=== PATIENT | male | born 1945 | race Caucasian/White ===

== ENCOUNTER → 2017-08-02 | Outpatient (CLI) | payer OTHER ==
[~2017-08-02] MED LIST: ACETAMINOPHEN-120 ML PO; ALBUTEROL NEB IH; AMLODIPINE BESY10 MG PO; ASPIRIN EC81 M1 PO; ASPIRIN81 MG OR; AVELOX 400 MG400 M1 PO; AVELOX 400 MG400 MG OR; AVELOX400 MG PO; CARVEDILOL25 MG PO; CHLOR-TABLET4 MG PO; COMBIVENT IN; COREG OR; COZAAR 50 MG TA50 MG PO; CRESTOR10 MG OR; DOXYCYCLINE 10100 MG PO; DOXYCYCLINE HYC50 MG PO; DUONEB 2.5-0.5 M3 ML INH; FLONASE 0.05%50 MCG NASAL; HUMALOG KW200 UNIT/1 SUBQ; HUMALOG100 UNIT/1; HYDROCHLOROTHIA25 M1 PO; HYDROCHLOROTHIA25 M2 PO; HYDROCODON-ACE1 EAC7 PO; K-DUR 20 MEQ T20 MEQ OR; K-DUR 20 MEQ T20 MEQ PO; LANTUS SC; LANTUS SOL100 UNIT/1 SUBQ; LISINOPRIL20 MG PO; LORATIDINE 10 M10 M1 PO; MAG DELAY64 MG OR; MAXZIDE-25 MG1 EACH PO; METFORMIN HCL500 MG PO; MUCINEX TA600 MG/TA1 PO; MUCINEX600 MG PO; NITROLINGUAL PU12 G1 SPRAY; NORVASC10 MG PO; NOVOLOG100 UNIT/1; NOVOLOG100 UNIT/1 SC; PREDNISOLONE 5 M5 M1 PO; PREDNISONE 10 M10 MG PO; PREDNISONE50 MG PO; PROTONIX40 M2 PO; PROVENTIL17 G1 IH; SYMBICORT160 MCG/4. INH; TESSALON PERLE100 MG PO; ZETIA10 MG OR; ZETIA10 MG PO; ZPAK PO; multivitamins
== END | disposition home or self-care (01) ==
LOC: RAD 09:30 → CAT 09:39
DX: M75.101 Unspecified rotator cuff tear or rupture of right shoulder, not specified as traumatic (principal)
CPT/HCPCS: 57086

== ENCOUNTER 2017-08-05 03:26 | Emergency (ER) | payer OTHER ==
[~2017-08-05] VITALS: Ht 190.5 cm; Wt 167.8 kg
--- NOTE | ~2017-08-05 | EKG ---
[address] [place] [address] ELECTROCARDIOGRAM REPORT Name: WAQAS MIGUELBIBIANA [facility] [id number] Admission: 08/05/17 Attend Phys: Discharge: 08/05/17 Date of : 47 Report #: [id number] THIS REPORT FOR: //name// [facility] ED Test Date: 2017-08-05 Test Time: 04:10:32 Pat Name: CASSIE MIGUEL Department: Room: Gender: Domestic Cleaner: CADEN : 1945 Requested By: Saskia Christine Order Number: [id number] MD: Floyd Lezama Measurements Intervals [place] Rate: 68 P: -4 DC: 191 QRS: -41 QRSD: 164 T: 57 QT: 445 QTc: 474 Interpretive Statements Sinus rhythm RBBB and LAFB Compared to ECG 09/17/2011 09:50:12 Bifascicular block no longer present Electronically Signed On 08-05-2017 17:26:37 DUCT MAKER by Floyd Lezama [email or web address] <ELECTRONICALLY SIGNED> By: Floyd Lezama MD 08/05/17 1726 0410 0410 Floyd Lezama MD /ANASTASIA
[~2017-08-05 03:26] MED LIST changes: -AVELOX 400 MG400 M1 PO; -DOXYCYCLINE HYC50 MG PO; -DUONEB 2.5-0.5 M3 ML INH; -HUMALOG KW200 UNIT/1 SUBQ; -LANTUS SOL100 UNIT/1 SUBQ; -LORATIDINE 10 M10 M1 PO; -NORVASC10 MG PO; -PREDNISONE 10 M10 MG PO
[2017-08-05] MEDS ORDERED: LANTUS SOL100 UNIT/1 SUBQ (04:09)
[2017-08-05] MEDS ORDERED: HUMALOG KW200 UNIT/1 SUBQ (04:09)
[2017-08-05 04:21] LABS: ABSOLUTE NEUTROPHILS 8.4 thou/uL (1.4-8.2); EOSINOPHILS 2.8 % (0.0-3.0); HEMATOCRIT 35.5 % (42.0-52.0); HEMOGLOBIN 11.1 gm/dL (14.0-18.0); LYMPHOCYTES 14.9 % (24.0-44.0); MCH 25.3 pg (26.0-34.0); MCHC 31.4 g/dL (28.0-37.0); MCV 80.8 fL (80.0-100.0); MONOCYTES 9.1 % (1.0-8.0); PLATELET COUNT 324 thou/uL (150-400); POLYS 72.2 % (36.0-66.0); RDW 16.1 % (10.5-14.5); WBC 11.7 thou/uL (4.0-11.0)
[2017-08-05 04:28] LABS: CALCIUM 8.8 mg/dL (8.5-10.1); CREATININE 0.8 mg/dL (0.7-1.3); POTASSIUM 3.4 mmol/L (3.5-5.1)
[2017-08-05 06:44] VITALS: BP 108/76
[2017-12-25] MEDS ORDERED: PREDNISONE 10 M10 MG PO (11:44)
[2017-12-25] MEDS ORDERED: AVELOX 400 MG400 M1 PO (11:46)
== END 2017-08-05 07:51 | disposition home or self-care (01) ==
LOC: ER 03:26
PROVIDERS: Emergency Medicine
DX: R06.00 Dyspnea, unspecified (principal); M54.10 Radiculopathy, site unspecified; Z88.1 Allergy status to other antibiotic agents

== ENCOUNTER → 2017-11-24 | Outpatient (CLI) | payer OTHER ==
[~2017-11-24] MED LIST changes: +HUMALOG KW200 UNIT/1 SUBQ; +LANTUS SOL100 UNIT/1 SUBQ
--- NOTE | ~2017-11-24 | 2DMMODE ---
[facility] [place] [address] 2 D/M-MODE ECHOCARDIOGRAM Name: LAMONTCASSIE ARVGINI Room #: REG [facility]#: [id number] Admission: 11/24/17 Attend Phys: Tejinder Segundo Discharge: Date of : 47 Date of Service: 11/24/17 1525 Report #: [id number] THIS REPORT FOR: //name// APPROVED REPORT Study performed: 11/24/2017 13:04:39 EXAM: Comprehensive 2D, Doppler, and color-flow Echocardiogram Patient Location: Out-Patient Status: routine BSA: 2.78 HR: 53 bpm BP: 147/74 mmHg Rhythm: NSR Other Information Study Quality: Fair Technically limited study due to morbid obesity. Wheelchair bound. Indications Dyspnea. Hx: CAD, stent, COPD Echo Enhancing Agent Indication: Endocardial border delineation Agent(s) / Amount(s) Used: Optison 5 cc 2D Dimensions RVDd: 46.33 mm LVEF(%): 53.57 (>50%) IVSd: 14.11 (7-11mm) LVOT Diam: 23.90 (18-24mm) LVDd: 54.27 mm PWd: 13.92 (7-11mm) Ascending Ao: 34.25 (22-36mm) LVDs: 39.11 (25-40mm) Aortic Root: 36.08 mm Sanchez's LVEF: 53.57 % Volumes Left Atrial Volume (Systole) Single Plane 4CH: 66.26 mL Single Plane 2CH: 66.17 mL LA ESV Index: 27.00 mL/m2 Aortic Valve AoV Peak Zurdo.: 1.72 m/s AO Peak Gr.: 12.74 mmHg LVOT Max P.62 mmHg [facility] [email or web address] [place] [address] 2 D/M-MODE ECHOCARDIOGRAM Name: CASSIE MIGUEL ARVID Room #: [facility]#: [id number] Admission: 11/24/17 Attend Phys: Tejinder Segundo Discharge: Date of : 47 Date of Service: 11/24/17 1525 Report #: [id number] LVOT Max V: 0.95 m/s ERICKA Vmax: 2.47 cm2 Mitral Valve E/A Ratio: 0.8 MV Decel. Time: 309.50 ms MV E Max Zurdo.: 0.67 m/s MV A Zurdo.: 0.82 m/s MV PHT: 89.75 ms IVRT: 78.43 ms Pulmonary Valve PV Peak Zurdo.: 1.04 m/s PV Peak Gr.: 4.29 mmHg Tricuspid Valve TR Peak Zurdo.: 4.16 m/s RAP Estimate: 10.00 mmHg TR Peak Gr.: 69.28 mmHg PA Pressure: 79.00 mmHg Left Ventricle The left ventricle is normal size. Mild to moderate concentric left ventricular hypertrophy. Left ventricular systolic function is normal. LVEF is 55%. Mild diastolic dysfunction is present (impaired relaxation pattern). Right Ventricle Right ventricle is moderately dilated. The right ventricular systolic function is low normal. Atria The left atrium size is normal. Right atrium is moderately dilated. Aortic Valve Aortic valve is calcified. No aortic regurgitation is present. There is no aortic valvular stenosis. Mitral Valve The mitral valve is normal in structure. There is no mitral valve regurgitation noted. No evidence of mitral valve stenosis. Tricuspid Valve The tricuspid valve is normal in structure. Mild to moderate tricuspid regurgitation. Severe pulmonary hypertension with an estimated PAP of 80mmHg. [facility] [address] [place] [address] 2 D/M-MODE ECHOCARDIOGRAM Name: CASSIE MIGUEL ARVID Room #: REG [facility]#: [id number] Admission: 11/24/17 Attend Phys: Tejinder Segundo Discharge: Date of : 47 Date of Service: 11/24/17 1525 Report #: [id number] Pulmonic Valve Pulmonic valve is not well visualized. Mild pulmonic regurgitation. Great Vessels The aortic root is normal in size. The ascending aorta is normal in size. IVC is normal in size and collapses <50% with inspiration. Pericardium There is no pericardial effusion. <Conclusion> The left ventricle is normal size. LVEF is 55%. Right ventricle is moderately dilated. The right ventricular systolic function is low normal. The left atrium size is normal. Right atrium is moderately dilated. Aortic valve is calcified. The mitral valve is normal in structure. The tricuspid valve is normal in structure. Mild to moderate tricuspid regurgitation. Severe pulmonary hypertension with an estimated PAP of 80mmHg. Pulmonic valve is not well visualized. Mild pulmonic regurgitation. There is no pericardial effusion. <ELECTRONICALLY SIGNED> By: Bucky Vivas MD 11/24/17 1525 1525 1525 Bucky Vivas MD /INF
== END ==
LOC: CV 08:45
DX: J44.9 Chronic obstructive pulmonary disease, unspecified (principal); I25.10 Atherosclerotic heart disease of native coronary artery without angina pectoris; I70.0 Atherosclerosis of aorta; I37.1 Nonrheumatic pulmonary valve insufficiency; I27.20 Pulmonary hypertension, unspecified; I07.1 Rheumatic tricuspid insufficiency

== ENCOUNTER 2017-12-04 02:08 | Inpatient (IN) | payer OTHER ==
[~2017-12-04] VITALS: Ht 190.5 cm; Wt 168.3 kg
--- NOTE | ~2017-12-04 | EKG ---
[place] [address] [place] [address] ELECTROCARDIOGRAM REPORT Name: CASSIE MIGUEL ARVID Room #: 427-P [facility] [place] M.R.#: [id number] Admission: 12/04/17 Attend Phys: Brett Sosa MD Discharge: Date of : 47 Report #: [id number] THIS REPORT FOR: //name// [facility] ED Test Date: 2017-12-04 Test Time: 02:25:34 Pat Name: CASSIE MIGUEL Department: Room: Gender: M Locomotive Driver: CADEN : 1945 Requested By: Rico Laws Order Number: [id number] MD: Adriano Adair Measurements Intervals [place] Rate: 49 P: -30 SC: 217 QRS: -38 QRSD: 159 T: -42 QT: 478 QTc: 432 Interpretive Statements Sinus bradycardia Right bundle branch block Compared to ECG 08/05/2017 04:10:32 heart rate has slowed Electronically Signed On 12-04-2017 8:16:51 CDT by Adriano Adair [email or web address] <ELECTRONICALLY SIGNED> By: Adriano Adair MD, [facility] 12/04/17 0816 4 4 Adriano Adair MD, [facility] /EPI
[2017-12-04 02:09] VITALS: BP 141/100
[2017-12-04 03:15] LABS: ABSOLUTE NEUTROPHILS 8.6 thou/uL (1.4-8.2); BASOPHILS 0.5 % (0.0-2.0); EOSINOPHILS 1.9 % (0.0-3.0); HEMATOCRIT 31.1 % (42.0-52.0); LYMPHOCYTES 11.2 % (24.0-44.0); MCH 26.1 pg (26.0-34.0); MCHC 32.3 g/dL (28.0-37.0); MCV 80.9 fL (80.0-100.0); MONOCYTES 8.8 % (1.0-8.0); PLATELET COUNT 286 thou/uL (150-400); POLYS 77.6 % (36.0-66.0); RBC 3.84 mil/uL (4.50-6.00); RDW 16.1 % (10.5-14.5); WBC 11.1 thou/uL (4.0-11.0)
[2017-12-04 03:22] LABS: ANION GAP 8 mmol/L (7-16); BUN 13 mg/dL (7-18); CHLORIDE 94 mmol/L (98-107); CO2 30 mmol/L (21-32); CREATININE 0.7 mg/dL (0.7-1.3); GLUCOSE 125 mg/dL (74-106); POTASSIUM 4.1 mmol/L (3.5-5.1); SODIUM 132 mmol/L (136-145)
[2017-12-04 03:32] LABS: ALBUMIN 3.3 g/dL (3.4-5.0); MAGNESIUM 1.9 mg/dL (1.8-2.4); SGOT 22 U/L (15-37); SGPT 23 U/L (30-65); TOTAL BILIRUBIN 0.4 mg/dL (<0.1-1.0); TOTAL PROTEIN 6.8 g/dL (6.4-8.2); TROPONIN-I < 0.04 ng/mL (<0.06)
[2017-12-04 04:00] VITALS: BP 105/54
[2017-12-04 04:40] VITALS: BP 111/42
[2017-12-04 07:00] VITALS: BP 111/44
[2017-12-04 16:00] VITALS: BP 123/55
[2017-12-04 20:06] VITALS: BP 113/55
[2017-12-05 04:45] VITALS: BP 105/48
[2017-12-05 07:25] VITALS: BP 104/55
[2017-12-05 15:30] VITALS: BP 98/44
[2017-12-05 20:11] VITALS: BP 116/46
[2017-12-06 04:17] VITALS: BP 124/54
[2017-12-06 05:22] LABS: HEMATOCRIT 33.8 % (42.0-52.0); MCH 26.4 pg (26.0-34.0); MCHC 32.5 g/dL (28.0-37.0); MCV 81.3 fL (80.0-100.0); RBC 4.15 mil/uL (4.50-6.00)
[2017-12-06 05:30] LABS: CALCIUM 9.2 mg/dL (8.5-10.1); CREATININE 0.8 mg/dL (0.7-1.3); POTASSIUM 4.5 mmol/L (3.5-5.1)
[2017-12-06 07:35] VITALS: BP 120/50
[2017-12-06 10:08] LABS: ANA INTERPRETATION Negative (Negative)
[2017-12-06 15:50] VITALS: BP 109/49
[2017-12-06 20:00] VITALS: BP 125/42
[2017-12-07 04:01] VITALS: BP 132/86
[2017-12-07 07:30] VITALS: BP 117/57
[2017-12-07 08:30] VITALS: BP 117/57
[2017-12-07] MEDS ORDERED: DUONEB 2.5-0.5 M3 ML INH (14:29)
[2017-12-07] MEDS ORDERED: DOXYCYCLINE HYC50 MG PO (14:29)
[2017-12-07] MEDS ORDERED: LORATIDINE 10 M10 M1 PO (14:29)
[2017-12-07] MEDS ORDERED: NORVASC10 MG PO (14:30)
[2017-12-07] MEDS ORDERED: PREDNISONE 10 M10 MG PO (14:34)
[2017-12-07 15:27] VITALS: BP 117/57
[2017-12-07 15:59] VITALS: BP 117/57
[2017-12-08 23:17] LABS: ADENOVIRUS Negative (Negative); INFLUENZA A Negative (Negative); INFLUENZA B Negative (Negative); METAPNEUMOVIRUS Negative (Negative); PARAINFLUENZA 1 Negative (Negative); PARAINFLUENZA 2 Negative (Negative); PARAINFLUENZA 3 Negative (Negative); RHINOVIRUS Negative (Negative); RSV A Negative (Negative); RSV B Negative (Negative)
[2017-12-09 01:07] LABS: HIV-1 BY PCR <40 (())
== END 2017-12-07 16:52 | disposition home health service (06) | DRG 193 ==
LOC: ER 02:08 → EROBS 03:28 → 4E 03:28
PROVIDERS: Emergency Medicine; Hospitalist; Internal Medicine Pulmonary Disease; Specialist
PROC: 5A09357 Assistance with Respiratory Ventilation, Less than 24 Consecutive Hours, Continuous Positive Airway Pressure (ICD-10-PCS; principal; 2017-12-05)
PROC: 5A09357 Assistance with Respiratory Ventilation, Less than 24 Consecutive Hours, Continuous Positive Airway Pressure (ICD-10-PCS; 2017-12-06)
DX: J18.9 Pneumonia, unspecified organism (principal); J96.21 Acute and chronic respiratory failure with hypoxia; J44.0 Chronic obstructive pulmonary disease with (acute) lower respiratory infection; J44.1 Chronic obstructive pulmonary disease with (acute) exacerbation; Z68.42 Body mass index [BMI] 45.0-49.9, adult; J20.9 Acute bronchitis, unspecified; I10 Essential (primary) hypertension; E78.5 Hyperlipidemia, unspecified; E11.9 Type 2 diabetes mellitus without complications; K21.9 Gastro-esophageal reflux disease without esophagitis; G47.33 Obstructive sleep apnea (adult) (pediatric); E66.01 Morbid (severe) obesity due to excess calories; I27.20 Pulmonary hypertension, unspecified; M19.90 Unspecified osteoarthritis, unspecified site; J30.2 Other seasonal allergic rhinitis; I25.10 Atherosclerotic heart disease of native coronary artery without angina pectoris; I25.2 Old myocardial infarction; Z95.5 Presence of coronary angioplasty implant and graft; Z88.1 Allergy status to other antibiotic agents; Z82.49 Family history of ischemic heart disease and other diseases of the circulatory system; Z79.82 Long term (current) use of aspirin; Z79.899 Other long term (current) drug therapy
CPT/HCPCS: 10183

== ENCOUNTER 2019-04-10 12:56 | Inpatient (IN) | payer OTHER ==
[2019-04-10] VITALS (22 sets, daily range): BP systolic 111–167; BP diastolic 42–94
[~2019-04-10] VITALS: Ht 182.9 cm; Wt 173.1 kg
[~2019-04-10 12:56] MED LIST changes: +AVELOX 400 MG400 M1 PO; +CENTRUM SILVER1 EAC4 PO; -COREG OR; +COREG6.25 MG PO; +CRESTOR10 MG PO; +DOXYCYCLINE HYC50 MG PO; +DUONEB 2.5-0.5 M3 ML INH; +LORATIDINE 10 M10 M1 PO; +NORVASC10 MG PO; +PREDNISONE 10 M10 MG PO; -multivitamins
[2019-04-10 13:16] LABS: BASOPHILS 0.3 % (0.0-2.0); EOSINOPHILS 1.2 % (0.0-3.0); HEMATOCRIT 39.5 % (42.0-52.0); HEMOGLOBIN 12.6 gm/dL (14.0-18.0); LYMPHOCYTES 7.2 % (24.0-44.0); MCH 27.3 pg (26.0-34.0); MCV 85.3 fL (80.0-100.0); MONOCYTES 6.3 % (1.0-8.0); PLATELET COUNT 243 thou/uL (150-400); RBC 4.63 mil/uL (4.50-6.00); WBC 10.6 thou/uL (4.0-11.0)
[2019-04-10 13:18] LABS: ANION GAP 7 mmol/L (7-16); BUN 46 mg/dL (7-18); CALCIUM 9.1 mg/dL (8.5-10.1); CHLORIDE 96 mmol/L (98-107); CO2 28 mmol/L (21-32); CREATININE 0.8 mg/dL (0.7-1.3); GLUCOSE 117 mg/dL (74-106); POTASSIUM 4.1 mmol/L (3.5-5.1); SODIUM 131 mmol/L (136-145)
[2019-04-10 13:27] LABS: TROPONIN-I <0.06 ng/mL (<0.06)
[2019-04-10 15:27] LABS: TSH 1.177 uIU/mL (0.358-3.740)
--- NOTE | 2019-04-10 19:42 | NUR ---
Christy Thacker LIBRARY ASSISTANT called re: pain and anxiety r/t external pacer firing. Orders rec'd for morphine IV for pain and hydroxyzine po for anxiety. Will continue dopamine gtt as a chemical pacemaker and contact Dr. Weathers for further orders. Report to oncoming shift.
--- NOTE | 2019-04-10 19:48 | NUR ---
Dr. Weathers called re: continued intermittent external pacing despite Dopamine gtt at 7.5 mcg/kg/min. Order rec'd to turn off external pacemaker. External pacer turned off. shift supervisor film processing RN updated.
[2019-04-11] VITALS (52 sets, daily range): BP systolic 107–182; BP diastolic 57–109
--- NOTE | 2019-04-11 04:46 | NUR ---
PATIENT ADMITTED FROM ED DEPARTMENT ALERT AND ORIENTED X4, PAIN CONTROLLED WITH MEDICATION. ON 4L NASAL CANNULA, HOME CPAP AT BEDSIDE. HOME CPAP NOT SIGNIFICANT DESPITE INTERVENTIONS TO KEEP OXYGEN ABOVE 90%. PATIENT PLACED ON HOSPITAL BIPAP, O2 SAT REMAINED ABOVE 97%. DYSPNEA WITH INCREASED ACTIVITY. WHEELER PLACED, ADEQUATE OUTPUT. JUNCTIONAL RHYTHM ON LAY UP OPERATOR, PATIENT HAD SEVERAL 4 SECOND PAUSES ON MONITOR, DOPAMINE INCREASED TO 7.5. PAUSES SUBSIDED. PATIENT AND SPOUSE UPDATED ON THE PLAN OF CARE. NO SIGNS OF ACUTE DISTRESS NOTED AT THIS TIME. WILL CONTINUE TO MONITOR.
[2019-04-11 06:42] LABS: ABSOLUTE NEUTROPHILS 9.4 thou/uL (1.4-8.2); BASOPHILS 0.2 % (0.0-2.0); EOSINOPHILS 0.6 % (0.0-3.0); HEMATOCRIT 42.1 % (42.0-52.0); HEMOGLOBIN 13.5 gm/dL (14.0-18.0); LYMPHOCYTES 10.4 % (24.0-44.0); MCH 27.3 pg (26.0-34.0); MCHC 32.1 g/dL (28.0-37.0); MCV 84.9 fL (80.0-100.0); MONOCYTES 6.9 % (1.0-8.0); PLATELET COUNT 243 thou/uL (150-400); POLYS 81.9 % (36.0-66.0); RBC 4.96 mil/uL (4.50-6.00); WBC 11.5 thou/uL (4.0-11.0)
[2019-04-11 06:51] LABS: PROTIME 10.7 Seconds (9.3-11.4)
[2019-04-11 07:19] LABS: CALCIUM 9.5 mg/dL (8.5-10.1); CREATININE 0.8 mg/dL (0.7-1.3); MAGNESIUM 2.4 mg/dL (1.8-2.4); POTASSIUM 4.2 mmol/L (3.5-5.1)
--- NOTE | 2019-04-11 08:20 | NUR ---
Dr. Joshi in to see pt re: possible permanent pacemaker placement. Instructed to decrease Dopamine gtt to 4 mcg/kg/min.
--- NOTE | 2019-04-11 08:30 | NUR ---
Instructed by Dr. Joshi to decrease Dopamine to 2 mcg/kg/min and plan for permanent pacemaker insertion. NPO, consent etc
--- NOTE | 2019-04-11 08:43 | NUR ---
Portable 2 D echo performed.
--- NOTE | 2019-04-11 08:47 | EKG ---
[address] [place] [address] ELECTROCARDIOGRAM REPORT Name: CASSIE MIGUEL ARVID Room #: 236-P ADM IN M.R.#: [id number] Admission: 04/10/19 Attend Phys: Jeffrey Alvarado MD Discharge: Date of : 47 Report #: [id number] THIS REPORT FOR: //name// [facility] ED Test Date: 2019-04-10 Test Time: 13:12:45 Pat Name: CASSIE MIGUEL Department: Room: [facility] Gender: M Territory Service Representative: : 1945 Requested By: Alex Obregon Order Number: [id number] MD: Adriano Adair Measurements Intervals [place] Rate: 64 P: 24 MS: 77 QRS: -45 QRSD: 170 T: 5 QT: 545 QTc: 563 Interpretive Statements Third degree AV block Atrial premature complexes in couplets RBBB and LAFB Compared to ECG 12/04/2017 02:25:34 Heart block is now present Electronically Signed On 04-11-2019 8:47:32 CDT by Adriano Adair [email or web address] <ELECTRONICALLY SIGNED> By: Adriano Adair MD, [facility] 04/11/19 0847 1312 1312 Adriano Adair MD, [facility] /EPI
--- NOTE | 2019-04-11 09:48 | NUR ---
Assess due to high BMI of 51.7=extreme class III obesity. Admit with complete heart block. NPO for pacemaker placement. RD consult diet instruction. Pt with hx dm, CAD, HTN. Wt is up 10 lb from last admit in 2018. Lives at home with , and has daily caregiver due to nonmobile. BG controlled. Can address pt willingness for any dietary changes to promote wt loss at more appropriate time. Low nutrition risk
--- NOTE | 2019-04-11 10:00 | NUR ---
12 Lead EKG performed
--- NOTE | 2019-04-11 10:15 | NUR ---
Dr. Weathers in to see patient and . Instructed to turn off Dopamine. Family states they were told if pt tolerates dopamine being off without pauses, may hold off on PPM
--- NOTE | 2019-04-11 11:22 | 2DMMODE ---
[facility] [place] [place] [address] 2 D/M-MODE ECHOCARDIOGRAM Name: CASSIE MIGUEL ARVID Room #: 236-P ADM IN .R.#: [id number] Admission: 04/10/19 Attend Phys: Jeffrey Alvarado MD Discharge: Date of : 47 Date of Service: 04/11/19 1121 Report #: [id number] THIS REPORT FOR: //name// APPROVED REPORT Study performed: 04/11/2019 08:40:13 EXAM: Comprehensive 2D, Doppler, and color-flow Echocardiogram Patient Location: ICU Room #: [facility] Status: routine BSA: 2.80 HR: 77 bpm Rhythm: Irregular Other Information Study Quality: Poor Indications Complete heart block, Pulmonary HTN. Echo Enhancing Agent Indication: Endocardial border delineation Agent(s) / Amount(s) Used: Optison 7 cc 2D Dimensions Ascending Ao: 35.97 (22-36mm) IVC: 22.00 mm Aortic Valve AoV Peak Zurdo.: 1.70 m/s AO Peak Gr.: 11.63 mmHg LVOT Max P.30 mmHg LVOT Max V: 0.91 m/s Pulmonary Valve PV Peak Zurdo.: 0.94 m/s PV Peak Gr.: 3.54 mmHg Tricuspid Valve TR Peak Zurdo.: 4.07 m/s TR Peak Gr.: 66.32 mmHg PA Pressure: 76.00 mmHg Left Ventricle The left ventricle is normal size. There is normal LV segmental wall [facility] [address] [place] [address] 2 D/M-MODE ECHOCARDIOGRAM Name: CASSIE MIGUEL ARVID Room #: 236-P [facility] IN ..#: [id number] Admission: 04/10/19 Attend Phys: Jeffrey Alvarado MD Discharge: Date of : 47 Date of Service: 04/11/19 1121 Report #: [id number] motion. There is normal left ventricular wall thickness. The left ventricular systolic function is normal. The left ventricular ejection fraction is within the normal range. LVEF is 60-65%. This study is not technically sufficient to allow evaluation of the LV diastolic function. Right Ventricle Right ventricle is dilated. Right ventricle is hypokinetic. Atria Left atrium is at the upper limits of normal. Right atrium is dilated. Aortic Valve The aortic valve is normal in structure. Aortic valve is calcified. No aortic regurgitation is present. There is no aortic valvular stenosis. Mitral Valve The mitral valve is normal in structure. There is no mitral valve regurgitation noted. No evidence of mitral valve stenosis. Tricuspid Valve The tricuspid valve is normal in structure. Moderate tricuspid regurgitation. Severe pulmonary hypertension. Estimated PAP 76 mmHg. Pulmonic Valve Pulmonic valve is not well visualized. There is no pulmonic valvular regurgitation. Great Vessels The aortic root is normal in size. The ascending aorta is normal in size. IVC is dilated and collapses <50% with inspiration. Pericardium There is no pericardial effusion. <Conclusion> The left ventricle is normal size. LVEF is 60-65%. Right ventricle is dilated. Right ventricle is hypokinetic. Right atrium is dilated. [facility] [address] [place] [address] 2 D/M-MODE ECHOCARDIOGRAM Name: CASSIE MIGUEL ARVID Room #: 236-P ADM IN ..#: [id number] Admission: 04/10/19 Attend Phys: Jeffrey Alvarado MD Discharge: Date of : 47 Date of Service: 04/11/19 1121 Report #: [id number] The aortic valve is normal in structure. Aortic valve is calcified. The mitral valve is normal in structure. The tricuspid valve is normal in structure. Moderate tricuspid regurgitation. Severe pulmonary hypertension. Estimated PAP 76 mmHg. Pulmonic valve is not well visualized. There is no pericardial effusion. <ELECTRONICALLY SIGNED> By: Bucky Vivas MD 04/11/191 20 20 Bucky Vivas MD /INF
--- NOTE | 2019-04-11 12:45 | NUR ---
Blood sugar 68, pt feels nauseated. NPO. 1/2 amp D50 given IV. Will recheck in 30 minutes.
[2019-04-11] MEDS ORDERED: LASIX 80 MG TAB80 MG PO (13:53)
[2019-04-11] MEDS ORDERED: CLARITIN10 MG PO (13:53)
[2019-04-11] MEDS ORDERED: TRAMADOL 50 MG50 MG PO (13:54)
[2019-04-11] MEDS ORDERED: GABAPENTIN 100100 MG PO (13:54)
[2019-04-11] MEDS ORDERED: ESZOPICLONE3 MG PO (13:54)
[2019-04-11] MEDS ORDERED: FLOMAX0.4 MG PO (13:54)
--- NOTE | 2019-04-11 17:06 | EKG ---
[place] [address] [address] [facility] [address] [place] [address] ELECTROCARDIOGRAM REPORT Name: CASSIE MIGUEL ARVID Room #: 236-P ADM IN M.R.#: [id number] Admission: 04/10/19 Attend Phys: Jeffrey Alvarado MD Discharge: Date of : 47 Report #: [id number] THIS REPORT FOR: //name// [facility] Test Date: 2019-04-11 Test Time: 09:37:55 Pat Name: CASSIE MIGUEL Department: Room: 236 P Gender: M Computer Methods Analyst: GUALBERTO : 1945 Requested By: Azul Barahona Order Number: [id number] MD: Adriano Adair Measurements Intervals [place] Rate: 77 P: 37 AL: 194 QRS: -34 QRSD: 170 T: 102 QT: 451 QTc: 511 Interpretive Statements Sinus rhythm Right bundle branch block Compared to ECG 04/10/2019 13:12:45 complete heart block no longer present Electronically Signed On 04-11-2019 17:05:49 CDT by Adriano Adair [email or web address] <ELECTRONICALLY SIGNED> By: Adriano Adair MD, [facility] 04/11/191704 6 Adriano Adair MD, [facility] /EPI
--- NOTE | 2019-04-11 18:44 | NUR ---
Shift summary: Pt rested much of day, feels better after getting sleep. Oriented x 4. No intervention needed for generalized pain this shift. VSS. Rhythm stable off dopamine gtt. Permanent pacemaker placement placed on hold today. Will keep pt NPO after midnight in case PPM needs to be placed tomorrow. O2 3L NC per home regimen. Home BiPAP when sleeping or napping. Lungs diminished. Diet given and tolerated this evening. Blood sugars controlled. Avitia with adequate urine output. Plan of care reviewed and updated as able. Will continue to monitor closely.
[2019-04-12] VITALS (20 sets, daily range): BP systolic 110–161; BP diastolic 56–94
--- NOTE | 2019-04-12 04:31 | NUR ---
PATIENT ALERT AND ORIENTED X4, MINIMAL COMPLAINTS OF PAIN. DOPAMINE OFF OVER NIGHT, PATIENT HAD MULTIPLE NON-SUSTAINED PAUSES ON MONITOR. SHORTNESS OF BREATH WITH INCREASED ACTIVITY. WHEELER PATENT AND DRAINING. BLOOD SUGAR MONITORED. PATIENT AND FAMILY UPDATED ON THE PLAN OF CARE. NO SIGNS OF ACUTE DISTRESS NOTED AT THIS TIME. WILL CONTINUE TO MONITOR.
[2019-04-12 05:31] LABS: HEMATOCRIT 41.4 % (42.0-52.0); HEMOGLOBIN 13.2 gm/dL (14.0-18.0); MCH 27.4 pg (26.0-34.0); MCHC 31.9 g/dL (28.0-37.0); RBC 4.81 mil/uL (4.50-6.00); RDW 15.6 % (10.5-14.5); WBC 10.8 thou/uL (4.0-11.0)
[2019-04-12 06:03] LABS: CALCIUM 9.4 mg/dL (8.5-10.1); CREATININE 0.5 mg/dL (0.7-1.3); POTASSIUM 3.6 mmol/L (3.5-5.1)
--- NOTE | 2019-04-12 10:18 | NUR ---
CM ASSESSMENT: ADMITTED WITH 3RD DEGREE AV HEART BLOCK ON 04/10 AND CV LAB STAFF HERE TO TAKE PT FOR PPM. SPOUSE HERE AND GOING WITH PT NOW. WILL MEET WITH PT/SPOUSE LATER TO ASSESS FOR DC NEEDS. RECORDS INDICATE PT AND SPOUSE LIVE IN [facility] WITH NO STEPS TO ENTER OR INSIDE. PT HAS POWER CHAIR, SLIDE BOARD, ELECTRIC BED, HOME O2 (3-3.5 L NC BASELINE) AND HOME BIPAP FOR SLEEP. PT HAS UTILIZED [facility] AND [facility] THEY HAVE A VAN TO TRANSPORT PT WITH POWER CHAIR.
--- NOTE | 2019-04-12 10:50 | HC ---
[facility] [address] [address] CONSULTATION Name: [facility] Room #: 236-P [facility] IN M.R.#: [id number] Admission: 04/10/19 Attend Phys: Jeffrey Alvarado MD Discharge: Date of : 47 Report #: [id number] THIS REPORT FOR: //name// CC: Max Alvarado REASON FOR CONSULTATION: Symptomatic bradycardia. HISTORY OF PRESENT ILLNESS: This is a very pleasant, morbidly obese 73-year-old male patient with multiple medical problems, who presented to the Emergency Room complaining of lightheadedness and dizziness. The patient states he woke up in the morning, and the dizziness and lightheadedness persisted. He stated he did not have any significant symptoms prior to this, although he had been feeling tired. He is totally nonmobile, utilizing a lift to transfer onto a mobile scooter. He has severe spine, hip and knee issues due to his size. They summoned EMS and upon arrival, EMS found him to be bradycardic at heart rates of under 40. He subsequently presented to the Emergency Room, was found to be in complete heart block with systolic blood pressures of 80 mmHg. The patient did not lose consciousness. He denies chest pain, pressure, tightness or heaviness. There is no orthopnea or PND. He has not had any shortness of breath since he is not active at all, but upon arrival he was noted to have this change in his usual. He denied any loss of consciousness; did not have any palpitations, did not have any near-syncope. He does have dependent lower extremity edema, and it has been chronic and not worsening at all. He does use CPAP for his sleep apnea syndrome (Pickwickian habitus). He did have a remote history of coronary artery disease, having been stented some 20 years ago, but no recurrent issues since that time. He has not had a stress test performed in quite some time. PAST MEDICAL HISTORY: 1. Morbid obesity. 2. Hypertension. 3. Dyslipidemia. 4. Coronary artery disease with coronary stenting in 1997. 5. GI bleed secondary to chronic nonsteroidal anti-inflammatory drug use. 6. Degenerative joint disease. 7. Obstructive sleep apnea, using BiPAP. 8. Diabetes mellitus. 9. Gastroesophageal reflux disease. 10. Pulmonary hypertension, severe by history. ALLERGIES: VANCOMYCIN, the result of which is not available to me. MEDICATIONS AT HOME: Loratadine 10 mg daily, DuoNeb, Norvasc, prednisone, Avelox. He also on 81 mg aspirin, Zetia, Crestor, ____, Mucinex, Protonix; Coreg 25 mg tablets twice a day by history, although the patient states it is 12.5 twice a day; hydrocodone, Maxzide, Glucophage, Lantus and Humalog KwikPen. [address] [address] CONSULTATION Name: CASSIE MIGUEL JOSE Room #: 236-P [facility] IN M.R.#: [id number] Admission: 04/10/19 Attend Phys: Jeffrey Alvarado MD Discharge: Date of : 47 Report #: [id number] PAST SURGICAL HISTORY: Significant for: 1. Coronary stenting. 2. Toenails removed. DIAGNOSTIC STUDIES: Electrocardiogram demonstrates AV dissociation with evidence of complete heart block and a narrow ventricular escape. SOCIAL HISTORY: The patient does not smoke or consume alcohol; does not follow a particular exercise regimen or dietary restriction. He is nonambulatory. REVIEW OF SYSTEMS: Except for symptoms previously mentioned and those commensurate with comorbid state, the 10-point review of system is negative. PHYSICAL EXAMINATION: VITAL SIGNS: Demonstrates a pulse of 95 and regular, blood pressure is 136/74, pulse ox is 94%, respiratory rate is 18 to 20. GENERAL: Obese male, resting comfortably, in no acute distress. HEENT: Normocephalic, atraumatic. Pupils are equal, round, reactive to light and accommodation. Extraocular muscles are intact. Sclerae and conjunctivae are anicteric. NECK: JVD is normal. Carotid upstrokes are bilaterally symmetrical. No bruits are heard. No thyromegaly. No lymphadenopathy. LUNGS: Clear to auscultation. No wheezes, rhonchi or crackles. No CVA tenderness. CARDIAC: Irregular rhythm. Variable first heart sound. No murmurs or rubs are noted. PMI is not palpable due to body habitus. ABDOMEN: Soft, nontender, nondistended. Normal bowel sounds. EXTREMITIES: Demonstrates larger nonpitting edema noted. Pulses are intact. NEUROLOGIC: Cranial nerves 2 to 12 are grossly normal and symmetrical. PSYCHIATRIC: Alert, oriented with normal affect. SKIN: Warm and dry. LABORATORY DATA: Demonstrates a potassium of 4.1, BUN and creatinine are 46 and 0.8. H and H is 12.6 and 39.5 with a platelet count of 243,000. Troponin is less than 0.06. RADIOLOGIC: Chest x-ray demonstrates mild left basilar opacity. IMPRESSION: 1. Dizziness, lightheadedness secondary to complete heart block, which resolved with IV dopamine. The patient is on beta blockade and we will discontinue this at the present time to determine whether we can recapture a sinus mechanism. Due to significant comorbidities, it would be best if this were the case, but if not then I did discuss the need for permanent pacing, but we will defer that now since we will evaluate the withdrawal of beta blockade. In addition to this, his rate has responded quite nicely and so has his blood pressure to low dose [facility] [address] [place] [address] CONSULTATION Name: CASSIE MIGUEL ARVID Room #: 236-P ADM IN M.R.#: [id number] Admission: 04/10/19 Attend Phys: Jeffrey Alvarado MD Discharge: Date of : 47 Report #: [id number] dopamine, and we will continue that currently. We will not proceed with temporary pacing implantation. 2. Diabetes mellitus. We will need to have this monitored very closely and will keep him on a surveillance regimen as per hospitalist service. 3. Obstructive sleep apnea. We will continue with treatment with overnight BiPAP or CPAP, whichever he is on at home. 4. Hypertension. We will monitor carefully and make sure that we do not over-control, but in view of his bradyarrhythmias we will need to control with [id number]-[id number] medications such as dihydropyridine, which can also cause acceleration. 5. Pulmonary hypertension by history. We will see what the echocardiogram demonstrates. 6. Dyslipidemia. He is on medications. We will continue with the [place] [employer] step 1 diet recommendations. <ELECTRONICALLY SIGNED> By: Bucky Vivas MD 04/12/19 1050 1428 0143 Bucky Vivas MD /rosie
--- NOTE | 2019-04-12 16:30 | NUR ---
ASSUMED CARE @ 0700 04/12/19, PT ASSESSMENTS AND VSS COMPLETE PER ICU PROTOCOL. PT ALERT AND ORIENTED X 4, NEURO INTACT. PT ON 4L OF , SATS IN THE HIGH 90'S. PT DOWN TO EP TO PLACE PACEMAKER TODAY, WHEN PT ARRIVED TO THE UNIT, PT DID HAVE A RUN OF VTACH, PT ASYMTOMATIC, CR FUNEZ WAS NOTIFIED, PT SINCE OUT OF RHYTHM . PT CHANGED TO HEART HEALTHY DIET SEC DIABETIC DIET PER ORDERS. WHEELER IN PLACE, GOP NOTED. PLAN OF CARE- CONT TO MONITOR.
--- NOTE | 2019-04-12 20:30 | NUR ---
[employer] CAME AND INTERROGATED THE PACEMAKER. RATE 60 TO 100.
[2019-04-13] VITALS (21 sets, daily range): BP systolic 129–178; BP diastolic 52–143
--- NOTE | 2019-04-13 06:00 | NUR ---
VSS PT HAS SLEPT MOST OF NOCT. 300 CC UO SINUS RHYTHM WITH OCC PACED BEATS. BATHED. PACEMAKER INCISION DRY AND INTACT. WILL CONT TO MONITOR.
--- NOTE | 2019-04-13 10:21 | HC ---
[facility] [place] [address] CONSULTATION Name: CASSIE MIGUEL ARVFL Room #: 236-P [facility] IN ..#: [id number] Admission: 04/10/19 Attend Phys: Jeffrey Alvarado MD Discharge: Date of : 47 Report #: [id number] THIS REPORT FOR: //name// CC: Max Alvarado DATE OF SERVICE: 04/12/2019 ENDOCRINE CONSULTATION NOTE CONSULTING PHYSICIAN: Dr. Jeffrey Alvarado. REASON FOR CONSULTATION: Uncontrolled type 2 diabetes mellitus. HISTORY OF PRESENT ILLNESS: This is a 73-year-old male patient whose medical background is significant for hypertension, hyperlipidemia, type 2 diabetes mellitus, coronary artery disease, and morbid obesity. The patient presented on 04/10/2019 with complaints of dizziness, lightheadedness and on further evaluation, he appeared to have a heart rate in the 30s and was found to be in complete heart block. Subsequently, the patient was admitted to the ICU for further monitoring and was initially treated with a dopamine drip. The patient notes that he has been a diabetic for many years and that he is on a regimen consisting of Lantus insulin 75 units at night in addition to Humalog supplemental scale that he takes as per sliding scale, but average is around 50 units 2-3 times daily depending on his food intake. The patient also is on metformin therapy at a dose of 1000 mg b.i.d. When questioned about the degree of control that he enjoys at home, he noted that his blood glucose levels are typically not often elevated and that he maintains values below 180 mg/dL for the most part. However, he notes issues with occasional hypoglycemia, especially at night when he had dropped as low as 50s in the past, but has never needed to be resuscitated or hospitalized for this issue. The patient is not aware of matters pertaining to diabetic retinopathy, but he does have intermittent difficulties with diabetic neuropathy that does not seem to be overly disruptive. The patient is not known to have existing issues with diabetic nephropathy. Again, the patient has a significant background for coronary artery disease requiring a stent over 20 years ago. 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 REVIEW OF SYSTEMS: CONSTITUTIONAL: Fatigue, tiredness, but not fever or chills. No major changes in body weight as of recently. PULMONARY: Chronic shortness of breath, baseline COPD that is oxygen dependent, [facility] [address] [place] [address] CONSULTATION Name: CASSIE MIGUEL JOSE Room #: 236-P [facility] IN ..#: [id number] Admission: 04/10/19 Attend Phys: Jeffrey Alvarado MD Discharge: Date of : 47 Report #: [id number] no major issues with cough or hemoptysis. CARDIAC: Dizziness, near syncope, discomfort, occasional palpitations, but no chest pain. GASTROINTESTINAL: Noted for intermittent issues with nausea and abdominal discomfort, but not vomiting or major changes in bowel movement frequency. NEUROLOGY: Dizziness, lightheadedness, but not seizures or severe frequent headaches. SKIN: Not noted for rash, ulceration or changes otherwise. MUSCULOSKELETAL: Severe knee arthritis resulting in a wheelchair bound status. PSYCHIATRIC: No delusions, hallucinations or other psychotic changes. HEENT: Negative for sinus drainage, ear discharge. Otherwise, review of systems noncontributory other than those mentioned in HPI. PAST MEDICAL HISTORY: 1. Type 2 diabetes mellitus. 2. Hypertension. 3. Hyperlipidemia. 4. CAD. 5. Morbid obesity. 6. COPD that is oxygen dependent. 7. Pulmonary hypertension. 8. Radiculopathy. 9. Obstructive sleep apnea. 10. Symptomatic bradycardia. 11. Acute renal injury in the past due to vancomycin-induced nephritis recovered fully since then. 12. GERD. 13. History of a bleeding peptic ulcer due to NSAID usage. ALLERGIES: VANCOMYCIN. OUTPATIENT MEDICATIONS: Included aspirin 81 mg daily, ezetimibe 10 mg daily, rosuvastatin 10 mg daily, guaifenesin as needed, losartan 50 mg daily, Protonix daily, carvedilol 25 mg b.i.d., Maxzide 25 mg daily, metformin 500 mg b.i.d., Lantus insulin 75 units at bedtime, Humalog insulin an average of 50 units 2-3 times a day. FAMILY HISTORY: Noncontributory. SOCIAL HISTORY: The patient has never smoked. Denies use of alcohol. He is . PHYSICAL EXAMINATION: GENERAL: A pleasant male patient who appears anxious, but not in pain or distress that I see. VITAL SIGNS: Blood pressure is 129/74 mmHg, heart rate is 81 beats per minute, [address] [address] CONSULTATION Name: CASSIE MIGUEL Room #: 236-P [facility] IN [facility].#: [id number] Admission: 04/10/19 Attend Phys: Jeffrey Alvarado MD Discharge: Date of : 46 Report #: [id number] respirations 11 per minute, temperature is 35.8 degrees. HEENT: Anicteric sclerae. Intact extraocular motions. NECK: Supple, without JVD, carotid bruits or lymphadenopathy. I do not appreciate thyromegaly. CHEST: Noted for distant breath sounds, scattered rales, limited air entry, rhonchi. HEART: Regular rate and rhythm without murmurs or gallops. ABDOMEN: Obese, but soft and lax without tenderness or organomegaly. No guarding. Active bowel sounds. EXTREMITIES: Lower extremity exam noted for trace ankle edema. Stasis dermatitis changes, appreciable pedal pulses. NEUROLOGY: Awake, alert and oriented to time, place and person. The remainder of his examination is largely nonfocal. PSYCHIATRIC: Pleasant, interactive, appropriate and appears apprehensive, but not in pain or distress. Normal mood and affect. SKIN: Other than stasis dermatitis changes over both lower extremities. No other abnormalities noted. LABORATORY RESULTS: Blood glucose levels since arrival ranged from 68 mg/dL to 159 mg/dL. His 2 lowest points were 68 and 84 mg/dL. Otherwise, sodium 139, potassium 3.6, chloride 100, CO2 of 28, anion gap 11, BUN 23, creatinine 0.5, glucose 95. Lipase 228, total bilirubin 0.5, calcium 9.4, magnesium 2.4, alkaline phosphatase 70, ALT 63, total protein 6.7, albumin 3.4, GFR 163. Troponin undetectable. BNP 327. INR 1.0. D-dimer 1.41. White blood count 10.8, hemoglobin 13.2, hematocrit 41.4, platelets 216. TSH 1.177. ASSESSMENT AND PLAN: 1. Type 2 diabetes mellitus. As noted above, the patient has had a longstanding history of type 2 diabetes mellitus that is characterized by a fairly large insulin dose requirement marking what is very likely severe insulin resistance. He has had some end-organ complications in the form of coronary artery disease as well as peripheral neuropathy. The patient notes an adequate level of control at home on his existing large insulin requirement, but his indicated that he probably does not monitor his blood glucose well enough to fully recognize that. Since his presentation to the hospital 2 days ago, the patient has been managed only by low intensity supplemental scale and has actually done very well and if anything had demonstrated a couple of blood glucose values that would be a bit under the desired range of 100-180 mg/dL, but do not qualify as hypoglycemia. This discrepancy and insulin need is likely due to the limited p.o. intake that he has had since arriving into the hospital. Given his current stability, I will not yet initiate long-acting insulin coverage and I will put in place Tradjenta 5 mg daily in addition to his current support with Humalog supplemental scale. Blood glucose monitoring will commence a.c. and at bedtime so as to adjust his regimen as needed as per his blood glucose pattern. I will [address] [address] CONSULTATION Name: CASSIE MIGUEL ARVID Room #: 236-P [facility] IN [facility].#: [id number] Admission: 04/10/19 Attend Phys: Jeffrey Alvarado MD Discharge: Date of : 47 Report #: [id number] check hemoglobin A1c to get a better assessment of his overall control state over the past few months. I suspect that his therapeutic needs will change dramatically as he stabilizes and resumes near regular p.o. intake. 2. Hyperlipidemia. The patient is indicated for aggressive lipid control and is typically on a regimen of ezetimibe and rosuvastatin. This is to continue long-term, but I will defer current management to Cardiology and Hospital Medicine. 3. Hypertension. The patient's level of blood pressure control is adequate for the time being, I will defer this plan and management to Cardiology and Hospital Medicine. 4. Complete heart block. This is his presenting issue and he is being considered for pacemaker placement in the near future, possibly later today. I certainly appreciate this consultation by Dr. Alvarado. <ELECTRONICALLY SIGNED> By: Anish Villa MD 04/13/19 1021 0927 [id number] Anish Villa MD /nt
--- NOTE | 2019-04-13 18:09 | NUR ---
ASSUMED CARE 1500, SHIFT ASSESSMENT DONE, MEDS GIVEN, VSS. PT IS ON 208'S TELE BOX 212'S TELE BOX COULD NOT BE FOUND, DATA ANALYTICS ANALYST NOTIFIED, NICHOLAS, NURSE ASPHALT DAUBER NOTIDIED WELL. NSR ON TELE, PACE MAKER SITE IS CLEAN, DRY, INTACT. HAD 2 LOOSE STOOLS TODAY. WILL CONTINUE TO ASSESS AND ASSIST WITH ADLs NEEDED.
[2019-04-14 00:32] VITALS: BP 109/45
[2019-04-14 04:33] VITALS: BP 117/63
--- NOTE | 2019-04-14 05:19 | NUR ---
ASSUMED PT CARE AT 1900 WITH NO SIGN OF DISTRESS NOTED. SPOUSE AT BEDSIDE. PT IS ALERT AND ORIENTED. DENIES ANY NEED AT THIS TIME. PT HAS A RIGHT ARM IMMOBILIZER ON FOR PACEMAKER PLACEMENT. ASSESSMENT COMPLETED AND DOUCMENTED. FALL PRECAUTION IN PLACE. SCHEDULED MEDS ADMINISTERED TO PT. PT TOLERATED PO INTAKE. NO NEEDS REQUESTED AT THIS TIME
[2019-04-14 07:39] VITALS: BP 133/73
[2019-04-14 11:36] VITALS: BP 152/72
[2019-04-14 16:18] VITALS: BP 156/85
--- NOTE | 2019-04-14 18:29 | NUR ---
ASSUMED CARE AT 0700, SHIFT ASSESSMENT DONE, MEDS GIVEN, VSS. DENIES PAIN, NAUSEA, VOMITING. FOELY IN PLACE, ADEQUATE URINE OUTPUT. RESTING IN BED. RECEIVING IV ANTIBIOTICS. DISCHARGE TO HOME TOMORROW.
[2019-04-14 19:41] VITALS: BP 133/72
[2019-04-15] VITALS (7 sets, daily range): BP systolic 131–153; BP diastolic 66–77
[2019-04-15 05:00] LABS: HEMATOCRIT 35.7 % (42.0-52.0); HEMOGLOBIN 11.5 gm/dL (14.0-18.0); MCH 27.5 pg (26.0-34.0); MCHC 32.1 g/dL (28.0-37.0); MCV 85.6 fL (80.0-100.0); RBC 4.17 mil/uL (4.50-6.00); RDW 16.2 % (10.5-14.5)
--- NOTE | 2019-04-15 05:06 | NUR ---
ASSUMED PT CARE AT 1900 WITH NO SIGN DISTRESS NOTED IN PT. PT IS STABLE. PT IS ALERT AND ORIENTED. ASSESSMENTR COMPLETED AND CHARTED. ARM IMMOBILIZER STIILL IN PLACE. SCHEDULED MEDS ADMINISTERED TO PT. PT IS TOLERATED PO INTAKE. NO FURTHER NEEDS REQUESTED AT THIS TIME.
[2019-04-15 05:19] LABS: CALCIUM 8.6 mg/dL (8.5-10.1); CREATININE 0.6 mg/dL (0.7-1.3); POTASSIUM 3.3 mmol/L (3.5-5.1)
[2019-04-15] MEDS ORDERED: BENICAR40 MG PO (10:16)
[2019-04-15] MEDS ORDERED: DOXYCYCLINE HYC50 MG PO (10:33)
[2019-04-15] MEDS ORDERED: TRADJENTA5 MG PO (10:37)
[2019-04-15] MEDS ORDERED: LANTUS100 UNIT/M SUBQ (10:38)
[2019-04-15] MEDS ORDERED: NOVOLOG100 UNIT/1 SUBQ (10:38)
--- NOTE | 2019-04-15 13:27 | NUR ---
Followup: noted discharge orders. Pt with extreme class III obesity. States appetite is finally better and did not want any information on diet. Stated "I've been down that road before, right now I just want to go home".
--- NOTE | 2019-04-15 13:59 | NUR ---
patient to dc home today. He has orders for HH. Gave list of providers. Patient interested in [facility] care but they do not take his insurance. Patient has [facility] dty at home. Discussed with patient who has rec HH care with [facility] in past. He is agreeable to HH with [facility], they are accepting. Patients PCP is Dr Wise. He needs ambulance for home. dc vacation planner arranging [facility] for home.
--- NOTE | 2019-04-15 14:13 | NUR ---
spoke with dc train planner [facility] for [id number]. Notified and patient no further needs
--- NOTE | 2019-04-15 16:19 | NUR ---
PATIENT DISCHARGED TO HOME WITH HOME HEALTH, PATIENT GIVEN DISCHARGE INSTRUCTIONS, STATED UNDERSTANDING, WHEELER CATHETER AND SALINE LOCK DC'D. PATIENT TOLERATED WILL, LEFT CHEST INCISION WELL APPROXIMATED. PATIENT TRANSPORTED HOME BY [facility].
--- NOTE | 2019-04-17 08:22 | P ---
[facility] [address] PROCEDURE REPORT Name: CASSIE MIGUEL Room #: 212-P [facility] IN ..#: [id number] Admission: 04/10/19 Attend Phys: Jeffrey Alvarado MD Discharge: 04/15/19 Date of : 46 Report #: [id number] THIS REPORT FOR: //name// CC: Max Alvarado PACEMAKER IMPLANTATION PREOPERATIVE DIAGNOSIS: Complete heart block. POSTOPERATIVE DIAGNOSIS: Complete heart block. HISTORY: The patient is a 73-year-old male with a history of coronary artery disease, morbid obesity, diabetes, severe pulmonary hypertension, who presented to the Emergency Room with fatigue and evidence of complete heart block. His beta-michelle was discontinued; however, after 48 hours, he continued to have frequent periods of complete heart block lasting anywhere from 5 to 10 seconds. An echocardiogram shows normal LV size and function with severe pulmonary hypertension and PA pressures in the 70s. He is here for dual chamber pacemaker implantation. ANESTHESIA: The patient underwent MAC anesthesia with no anesthesia-related complications. The Anesthesiology physician actually had to hold his BiPAP mask on during the case and he did well from a respiratory standpoint. DESCRIPTION OF PROCEDURE: The patient underwent informed consent, where we discussed the details of the procedure including the risks, which included but not limited to bleeding, infection, vascular damage, cardiac perforation and pneumothorax. He understood these risks and is willing to proceed. Next, I injected lidocaine below the level of left clavicle, incision was made, pocket was created over the prepectoral fascia. Of note, the patient received IV daptomycin given his history of MRSA and a potential VANCOMYCIN ALLERGY. Next, I obtained access in the left axillary vein x 2 using the extrathoracic approach with sheaths positioned using the modified Seldinger technique. As he was somewhat rotated, I did do a venogram via a 5-Hungarian short sheath to ensure that we were in the vein and not the artery. As we were in the vein, I then positioned a lead into the right ventricular mid septum. This did dislodge the first time due to the severe TR, but then I was able to reposition it and it remained in good position with stable pacing and sensing thresholds. Next, I attempted to position an atrial lead into the right atrial appendage. The first lead dislodged 3-4 times. There was potentially an issue with the lead; therefore, I asked for a second lead. Again, this second lead did dislodge a few times as well, but then, I was eventually able to position the lead and doing my standard testing maneuver of advancing the lead back and forth across the tricuspid valve and it no longer dislodged. As such, the leads were sutured to the prepectoral fascia. The pocket was irrigated with vancomycin. The device was connected, tested and found to be functioning normally, and the [address] [address] PROCEDURE REPORT Name: CASSIE MIGUEL ARVID Room #: 212-P [facility] IN M.R.#: [id number] Admission: 04/10/19 Attend Phys: Jeffrey Alvarado MD Discharge: 04/15/19 Date of : 47 Report #: [id number] pocket was closed in 2 layers using 2-0 for the deep layer, 3-0 for the mid layer and surgical glue was placed to the outer skin layer. The implanted pacemaker was a [employer], MRI compatible, model #2272, serial #[id number]. The atrial lead was a [employer] model #[id number]. The RV lead was a [employer] model #2088, 65 cm, serial #[id number]. The atrial lead demonstrated P-wave of 2.5 millivolts, pacing impedance of 400 ohms, pacing threshold of 0.5 volts at 0.4 milliseconds. The RV lead demonstrated R-wave of 7.4 millivolts, pacing impedance of 710 ohms and the pacing threshold 0.5 volts at 0.4 milliseconds. The device was programmed to the DDD 60-130 mode. The atrial lead that failed and was not implanted was a [employer], model #2088TC, 52 cm, serial #[id number]. CONCLUSIONS: 1. Successful dual-chamber pacemaker implantation. 2. Satisfactory atrial and ventricular pacing and sensing thresholds. <ELECTRONICALLY SIGNED> By: Floyd Lezama MD 04/17/19 0822 1439 2316 Floyd Lezama MD /nt
--- NOTE | 2019-04-17 08:22 | HC ---
[facility] [place] [address] CONSULTATION Name: CASSIE MIGUELGINI Room #: 212-P [facility] IN ..#: [id number] Admission: 04/10/19 Attend Phys: Jeffrey Alvarado MD Discharge: 04/15/19 Date of : 47 Report #: [id number] THIS REPORT FOR: //name// CC: Max Alvarado DATE OF SERVICE: 04/11/2019 This is an electrophysiology consultation for heart block. HISTORY OF PRESENT ILLNESS: The patient is a 73-year-old male with a history of morbid obesity, coronary artery disease, status post prior stent, prior GI bleeding, diabetes and a history of pulmonary hypertension as well as prior MRSA infection. He presents with lightheadedness and fatigue and was noted to be in complete heart block. He was placed in the ICU on dopamine. Attempts to titrate him off resulted in recurrent periods of complete heart block lasting anywhere from 5 to 10 seconds. He denies any chest pain. He denies any syncopal episodes. PAST MEDICAL HISTORY: 1. Coronary artery disease, status post stent in 1997. 2. Hypertension. 3. Hyperlipidemia. 4. Morbid obesity. 5. Gastrointestinal bleeding in the past. 6. Sleep apnea. 7. Diabetes. 8. GERD. 9. Pulmonary hypertension. ALLERGIES: INCLUDE VANCOMYCIN, WHICH RESULTS IN ACUTE RENAL FAILURE. MEDICATIONS: Have been reviewed and he has been on a beta michelle for some time and this has been stopped for a period of time. SOCIAL HISTORY: Does not smoke. FAMILY HISTORY: Noncontributory. ALLERGIES: As above. Vitals have been reviewed. REVIEW OF SYSTEMS: A 12-point review of systems was performed and was negative other than what I mentioned above. [facility] [address] [place] [address] CONSULTATION Name: CASSIE MIGUEL ARVND Room #: 212-P [facility] IN [facility].#: [id number] Admission: 04/10/19 Attend Phys: Jeffrey Alvarado MD Discharge: 04/15/19 Date of : 47 Report #: [id number] PHYSICAL EXAMINATION: GENERAL: He is alert and oriented x 3. HEENT: Oropharynx is clear. CARDIOVASCULAR: Regular rate and rhythm with no murmurs, rubs, gallops. LUNGS: Clear to auscultation bilaterally. ABDOMEN: Soft, nontender, nondistended. EXTREMITIES: There is no clubbing, cyanosis or edema. NEUROLOGIC: Cranial nerves 2-12 are intact. LABORATORY DATA: Have been reviewed. ASSESSMENT: Heart block that is not resolved with cessation of beta michelle therapy. As such, the patient will require dual chamber pacemaker implantation. We have discussed the details of the procedure including the risks, which include but not limited to bleeding, infection, vascular damage, cardiac perforation and pneumothorax. He understands these risks and is willing to proceed. Date of this consultation was 04/11/2019 that is when I initially saw the patient. <ELECTRONICALLY SIGNED> By: Floyd Lezama MD 04/17/19821 9 11 Floyd Lezama MD /nt
== END 2019-04-15 15:30 | disposition home health service (06) | DRG 242 ==
LOC: ER 12:56 → ICU 14:29 → EROBS 14:29 → ICU 17:52 → 2N 04-13 14:30
PROVIDERS: Emergency Medicine; Internal Medicine Cardiovascular Disease; Nurse Practitioner; ADMIT Hospitalist
PROC: 5A09357 Assistance with Respiratory Ventilation, Less than 24 Consecutive Hours, Continuous Positive Airway Pressure (ICD-10-PCS; principal; 2019-04-10)
PROC: 5A09357 Assistance with Respiratory Ventilation, Less than 24 Consecutive Hours, Continuous Positive Airway Pressure (ICD-10-PCS; 2019-04-11)
PROC: 02H63JZ Insertion of Pacemaker Lead into Right Atrium, Percutaneous Approach (ICD-10-PCS; 2019-04-12)
PROC: 5A09357 Assistance with Respiratory Ventilation, Less than 24 Consecutive Hours, Continuous Positive Airway Pressure (ICD-10-PCS; 2019-04-12)
PROC: 0JH606Z Insertion of Pacemaker, Dual Chamber into Chest Subcutaneous Tissue and Fascia, Open Approach (ICD-10-PCS; 2019-04-12)
PROC: B51N1ZZ Fluoroscopy of Left Upper Extremity Veins using Low Osmolar Contrast (ICD-10-PCS; 2019-04-12)
PROC: 02HK3JZ Insertion of Pacemaker Lead into Right Ventricle, Percutaneous Approach (ICD-10-PCS; 2019-04-12)
PROC: 5A09357 Assistance with Respiratory Ventilation, Less than 24 Consecutive Hours, Continuous Positive Airway Pressure (ICD-10-PCS; 2019-04-13)
PROC: 5A09357 Assistance with Respiratory Ventilation, Less than 24 Consecutive Hours, Continuous Positive Airway Pressure (ICD-10-PCS; 2019-04-14)
PROC: 5A09357 Assistance with Respiratory Ventilation, Less than 24 Consecutive Hours, Continuous Positive Airway Pressure (ICD-10-PCS; 2019-04-15)
DX: I44.2 Atrioventricular block, complete (principal); E43 Unspecified severe protein-calorie malnutrition; Z68.43 Body mass index [BMI] 50.0-59.9, adult; J44.9 Chronic obstructive pulmonary disease, unspecified; I10 Essential (primary) hypertension; E78.5 Hyperlipidemia, unspecified; K21.9 Gastro-esophageal reflux disease without esophagitis; G47.33 Obstructive sleep apnea (adult) (pediatric); M17.0 Bilateral primary osteoarthritis of knee; I45.2 Bifascicular block; I25.10 Atherosclerotic heart disease of native coronary artery without angina pectoris; E87.6 Hypokalemia; I34.0 Nonrheumatic mitral (valve) insufficiency; E11.42 Type 2 diabetes mellitus with diabetic polyneuropathy; E66.01 Morbid (severe) obesity due to excess calories; I27.20 Pulmonary hypertension, unspecified; I25.2 Old myocardial infarction; Z95.5 Presence of coronary angioplasty implant and graft; Z86.14 Personal history of Methicillin resistant Staphylococcus aureus infection; Z99.3 Dependence on wheelchair; Z99.81 Dependence on supplemental oxygen; Z79.82 Long term (current) use of aspirin; Z79.84 Long term (current) use of oral hypoglycemic drugs; Z79.899 Other long term (current) drug therapy; Z88.1 Allergy status to other antibiotic agents; Z82.49 Family history of ischemic heart disease and other diseases of the circulatory system
CPT/HCPCS: 10078; 10081; 10797; 62110; 62900; 70005

== ENCOUNTER 2019-09-15 12:23 | Inpatient (IN) | payer OTHER ==
[~2019-09-15] VITALS: Ht 190.5 cm; Wt 168.3 kg
[~2019-09-15 12:23] MED LIST changes: +BENICAR40 MG PO; +CLARITIN10 MG PO; +ESZOPICLONE3 MG PO; +FLOMAX0.4 MG PO; +GABAPENTIN 100100 MG PO; +LANTUS100 UNIT/M SUBQ; +LASIX 80 MG TAB80 MG PO; +NOVOLOG100 UNIT/1 SUBQ; +TRADJENTA5 MG PO; +TRAMADOL 50 MG50 MG PO
[2019-09-15 12:25] VITALS: BP 98/55
[2019-09-15 12:47] LABS: BE(vivo) 4.3 mmol/L (-2 to +3); HCO3 32.4 mmol/L (22.0-26.0); PCO2 VENOUS 64.1 mmHg (41.0-51.0); PO2 VENOUS 29.2 mmHg (35.0-45.0)
[2019-09-15 12:59] LABS: ABSOLUTE NEUTROPHILS 9.5 thou/uL (1.4-8.2); BASOPHILS 0.3 % (0.0-2.0); EOSINOPHILS 0.4 % (0.0-3.0); HEMATOCRIT 43.6 % (42.0-52.0); HEMOGLOBIN 13.7 gm/dL (14.0-18.0); LYMPHOCYTES 8.8 % (24.0-44.0); MCH 27.7 pg (26.0-34.0); MCHC 31.4 g/dL (28.0-37.0); MONOCYTES 6.4 % (1.0-8.0); PLATELET COUNT 219 thou/uL (150-400); POLYS 84.1 % (36.0-66.0); RBC 4.95 mil/uL (4.50-6.00); RDW 15.5 % (10.5-14.5); WBC 11.3 thou/uL (4.0-11.0)
[2019-09-15 13:06] LABS: ANION GAP 6 mmol/L (7-16); BUN 26 mg/dL (7-18); CALCIUM 8.8 mg/dL (8.5-10.1); CHLORIDE 93 mmol/L (98-107); CO2 36 mmol/L (21-32); CREATININE 0.9 mg/dL (0.7-1.3); GLUCOSE 104 mg/dL (74-106); POTASSIUM 3.5 mmol/L (3.5-5.1); SODIUM 135 mmol/L (136-145)
[2019-09-15] MEDS ORDERED: XARELTO20 MG PO ×2 (13:10→23:41)
[2019-09-15] MEDS ORDERED: AMBIEN5 MG PO (13:10)
[2019-09-15] MEDS ORDERED: POTASSIUM20 PO (13:12)
[2019-09-15] MEDS ORDERED: BENICAR40 MG PO (13:13)
[2019-09-15] MEDS ORDERED: MELATONIN10 M3 PO (13:13)
[2019-09-15] MEDS ORDERED: FLONASE 0.05%50 MCG NARES (13:14)
[2019-09-15 13:16] LABS: ALBUMIN 3.5 g/dL (3.4-5.0); SGOT 33 U/L (15-37); SGPT 34 U/L (30-65); TOTAL BILIRUBIN 0.6 mg/dL (<0.1-1.0); TOTAL PROTEIN 7.6 g/dL (6.4-8.2); TROPONIN-I <0.06 ng/mL (<0.06)
[2019-09-15] MEDS ORDERED: SLOW FE142 MG PO (13:16)
[2019-09-15 20:08] VITALS: BP 102/57
[2019-09-15 20:53] VITALS: BP 123/88
[2019-09-15] MEDS ORDERED: MUCINEX600 MG PO (21:10)
--- NOTE | 2019-09-16 00:27 | NUR ---
PATIENT WAS A NEW ADMISSION TO THE UNIT THIS SHIFT. HE ARRIVED VIA CART FROM THE ER AND WAS TRANSFERRED TO THE BED WITHOUT INCIDENT. PATIENT IS ALERT AND ORIENTED AND IS ABLE TO PARTICIPATE IN PROCESS. BREATHING STABLE ON OXYGEN. NURSE TO COMPLETE ADMISSION PROCESS AND INITIATE PLAN OF CARE.
[2019-09-16 04:35] VITALS: BP 128/72
[2019-09-16 06:07] LABS: HEMATOCRIT 42.5 % (42.0-52.0); HEMOGLOBIN 13.3 gm/dL (14.0-18.0); MCH 27.4 pg (26.0-34.0); MCHC 31.2 g/dL (28.0-37.0); MCV 87.9 fL (80.0-100.0); RBC 4.84 mil/uL (4.50-6.00); RDW 15.2 % (10.5-14.5); WBC 5.5 thou/uL (4.0-11.0)
[2019-09-16 06:59] LABS: ANION GAP 8 mmol/L (7-16); BUN 22 mg/dL (7-18); CALCIUM 8.7 mg/dL (8.5-10.1); CHLORIDE 97 mmol/L (98-107); CHOLESTEROL 141 mg/dL (<200); CO2 31 mmol/L (21-32); CREATININE 0.7 mg/dL (0.7-1.3); GLUCOSE 238 mg/dL (74-106); HDL CHOLESTEROL 46 mg/dL (>40); LDL CHOLESTEROL 87 mg/dL (<100); POTASSIUM 4.3 mmol/L (3.5-5.1); SODIUM 136 mmol/L (136-145); TC:HDL 3.1 Ratio (Not establshd); TRIGLYCERIDE 42 mg/dL (<150); VLDL 8 mg/dL (<40)
--- NOTE | 2019-09-16 07:56 | EKG ---
[facility] [place] [address] ELECTROCARDIOGRAM REPORT Name: CASSIE MIGUEL ARVCA Room #: 349-I ADM IN M.R.#: [id number] Admission: 09/15/19 Attend Phys: Speedy Flores MD Discharge: Date of : 47 Report #: [id number] THIS REPORT FOR: cc: Max Wise MD, Eric K. MD Lundgren, Craig H. MD [facility] ~ THIS REPORT FOR: //name// [facility] ED Test Date: 2019-09-15 Test Time: 12:45:20 Pat Name: CASSIE MIGUEL Department: Room: [facility] Gender: M Government Property Inspector: BONNIE : 1945 Requested By: Rebekah Ornelas Order Number: [id number] MD: Adriano Adair Measurements Intervals [place] Rate: 97 P: -85 NM: 193 QRS: -48 QRSD: 151 T: 83 QT: 416 QTc: 529 Interpretive Statements Atrial flutter with 2:1 AV conduction RBBB and LAFB Compared to ECG 04/11/2019 09:37:55 atrial flutter is now present Electronically Signed On 09-16-2019 7:55:37 DATA MODELING ARCHITECT by Adriano Adair [email or web address] <ELECTRONICALLY SIGNED> By: Adriano Adair MD, FAC 09/16/19 0755 1245 1245 Adriano Adair MD, FAC /EPI
[2019-09-16 08:26] VITALS: BP 149/78
[2019-09-16 11:28] VITALS: BP 150/84
--- NOTE | 2019-09-16 16:22 | NUR ---
INITIAL ASSESSMENT: Received consult. JULIANA reviewed chart and spoke with nursing and attending physician. Pt was admitted from home due to exacerbation of COPD/sepsis. JULIANA met with pt at bedside. Introduced role of SW. Pt is alert/orientated x 4. Pt reports he lives at home with his . Prior to admission, pt was using a power chair for mobility. Pt has home O2 and bipap machine through [employer]. Pt states that her currently receives HH services through [facility]. Per pt, HH comes out daily. Pt's PCP is Dr. Max Wise. Discharge plan is for pt to return home when medically stable. JULIANA notified [facility] liaison, Noni, to provide update. JULIANA faxed HH referral to [facility] for review. Pt will need ambulance transportation home when discharged. JULIANA is following to assist as needed with discharge planning.
[2019-09-16 16:40] VITALS: BP 139/82
--- NOTE | 2019-09-16 19:31 | NUR ---
0700 pt care taken over at 0700, pt alert and oriented X4. Denies pain, nausea and vomiting. Asssessment completed. pt on 3l of oxygen. Call light in reach and bed at lowest level. Pt denies any other needs. Will continue to monoitor
[2019-09-16 20:31] VITALS: BP 103/60
[2019-09-16 22:06] LABS: GLYCOHEMOGLOBIN (HGB A1C) 6.6 % (4.8-5.6)
[2019-09-17 03:17] VITALS: BP 126/71
[2019-09-17 07:29] VITALS: BP 153/84
[2019-09-17 08:05] LABS: URINE BILIRUBIN NEGATIVE (Negative); URINE BLOOD NEGATIVE (Negative); URINE CLARITY CLEAR; URINE COLOR YELLOW; URINE GLUCOSE-RANDOM* TRACE (Negative); URINE KETONES NEGATIVE (Negative); URINE NITRITE-REFLEX NEGATIVE (Negative); URINE PROTEIN (DIPSTICK) NEGATIVE (Negative); URINE UROBILINOGEN 0.2 E.U./dl (0.2-1.0)
[2019-09-17 08:06] LABS: URINE LEUKOCYTES-REFLEX 1+ (Negative)
[2019-09-17 08:28] LABS: CASTS None Seen /LPF (None Seen); CRYSTALS None Seen /LPF (None Seen); SQUAMOUS 0-3 Few /LPF (0-3); URINE WBC-REFLEX 6-15 Few /HPF (0-5)
[2019-09-17 08:29] LABS: BACTERIA-REFLEX 1-9 Few /HPF (None Seen)
[2019-09-17 08:30] LABS: URINE RBC None Seen /HPF (0-2)
--- NOTE | 2019-09-17 09:06 | HC ---
[facility] [place] [address] CONSULTATION Name: CASSIE MIGUEL ARVID Room #: 349-I ADM IN M.R.#: [id number] Admission: 09/15/19 Attend Phys: Brett Sosa MD Discharge: Date of : 47 Report #: [id number] THIS REPORT FOR: cc: Max Wise MD, Eric K. MD Al-Mubaslat, Ahmad MD ~ CC: Max Sosa DATE OF SERVICE: 09/16/2019 ENDOCRINE CONSULTATION NOTE CONSULTING PHYSICIAN: Dr. Rhodes. PRIMARY CARE DOCTOR: Max Wise MD REASON FOR CONSULTATION: Uncontrolled type 2 diabetes mellitus, severe hyperglycemia. HISTORY OF PRESENT ILLNESS: This is a 74-year-old male patient whose medical background is significant for multiple significant medical issues including type 2 diabetes mellitus, COPD with oxygen dependence, coronary artery disease, status post stent placement, pulmonary hypertension, morbid obesity, hypertension, hyperlipidemia. The patient presented to the ER last night with worsening shortness of breath that has progressed over the past 2 weeks. The patient explains that he had been treated with antibiotics as an outpatient, but with worsening of his symptoms. Upon arrival, the patient was diagnosed with COPD exacerbation and was admitted for further care and monitoring. The patient has been known to have type 2 diabetes mellitus for over 20 years. He notes that his most recent diabetes regimen consists of Lantus insulin 75 units q.p.m., Humalog insulin 38 units that mostly he uses once a day, metformin 500 mg b.i.d., linagliptin 5 mg daily. He checks his blood glucose mostly in the fasting state and these have been in the 90-130 mg/dL. He does not have major issues with hypoglycemia. He notes that hypoglycemia occurs only occasionally tends to be mild to moderate. The patient is not known to have diabetic retinopathy, but is noted to have cataracts, which he had not needed surgery for, he is not known to have diabetic nephropathy, but has peripheral diabetic neuropathy requiring the use of gabapentin. The patient is known to have coronary artery disease, status post stent placement. Also, he is hyperlipidemic and is treated as an outpatient with rosuvastatin 10 mg daily. He is hypertensive and is treated with triamterene/hydrochlorothiazide 37.5/25 mg once daily. REVIEW OF SYSTEMS: [address] [address] [facility] Room #: [facility]-I [facility] IN .R.#: [id number] Admission: 09/15/19 Attend Phys: Brett Sosa MD Discharge: Date of : 47 Report #: [id number] CONSTITUTIONAL: Fatigue, tiredness, but not fever or chills. No significant body weight changes. HEENT: Negative for sore throat, ear drainage. PULMONARY: Progressive shortness of breath and cough, but no hemoptysis. CARDIAC: Dyspnea on exertion, lower extremity swelling, but not chest pain or palpitations. GASTROINTESTINAL: Abdominal distention, abdominal discomfort, nausea, but no vomiting. NEUROLOGY: Negative for loss of consciousness, seizure activity. Severe frequent headaches noted for baseline peripheral diabetic neuropathy. PSYCHIATRIC: Negative for delusions, hallucinations. Otherwise, review of systems noncontributory other than those mentioned in HPI. PAST MEDICAL HISTORY: 1. Type 2 diabetes mellitus. 2. Peripheral diabetic neuropathy. 3. Cataracts. 4. Hyperlipidemia. 5. Hypertension. 6. COPD. 7. Morbid obesity. 8. CAD, status post stent placement. 9. Hypertension. 10. Hyperlipidemia. 11. Degenerative joint disease. 12. History of GI bleeding. 13. Immobility, wheelchair dependent. 14. Pulmonary hypertension. 15. Obstructive sleep apnea. 16. GERD. 17. Complete heart block, status post pacemaker placement in 03/2019. ACTIVE OUTPATIENT MEDICATIONS: Lantus insulin 75 units q.p.m., Humalog insulin 38 units once daily, metformin 500 mg b.i.d., rosuvastatin 10 mg daily, multivitamins daily, Lasix 80 mg daily, tramadol 50 mg 1 to 2 tabs q. 8 hours p.r.n., Flomax 0.4 mg daily, gabapentin 100 mg at bedtime, guaifenesin 600 mg q. 12 hours, ezetimibe 10 mg daily, Protonix daily, Maxzide 25 mg daily, Ambien 5 mg daily, Xarelto 20 mg with dinner, KCl 20 mEq daily, Benicar 40 mg daily, melatonin, ferrous sulfate 325 mg daily. ALLERGIES: HE IS ALLERGIC TO VANCOMYCIN. FAMILY HISTORY: Noncontributory. SOCIAL HISTORY: Denies use of tobacco, alcohol or illicit drugs. [facility] [address] [place] [address] CONSULTATION Name: CASSIE MIGUEL JOSE Room #: 349-I [facility] IN M.R.#: [id number] Admission: 09/15/19 Attend Phys: Brett Sosa MD Discharge: Date of : 47 Report #: [id number] PHYSICAL EXAMINATION: GENERAL: Pleasant male patient who is not in apparent pain or distress. VITAL SIGNS: Blood pressure is 150/84, heart rate is 96 beats per minute, respirations 24 per minute, temperature 36.7 degrees Celsius. CONSTITUTIONAL: Morbidly obese, lying in bed, seems comfortable, not in apparent distress. HEENT: Anicteric sclerae. Intact extraocular motions. NECK: Supple, without carotid bruits or thyromegaly. CHEST: Noted for limited air entry bilaterally. Distant breath sounds, scattered rales. HEART: Regular rate and rhythm without murmurs or gallops. ABDOMEN: Obese, bit tense, but soft. No guarding. Active bowel sounds. EXTREMITIES: Lower extremity exam noted for ankle edema bilaterally with extensive stasis dermatitis over both lower extremities. NEUROLOGIC: Awake, alert and oriented to time, place and person. The remainder of his examination is noted for limited lower extremity power and diminished sensation over both lower extremities. PSYCHIATRIC: Pleasant, appropriate and interactive. Normal mood and affect. LABORATORY RESULTS: Blood glucose values since arrival have run from 230-249 mg/dL. Hemoglobin A1c was ordered and is pending. Sodium 136, potassium 4.3, chloride 97, CO2 of 31, anion gap 8, BUN 22, creatinine 0.7, lipase 228, total bilirubin 0.6, direct bilirubin 0.2, calcium 8.7, magnesium 2.4, alkaline phosphatase 104, ALT 34, total protein 7.6, albumin 3.5, EGFR 111. Lactic acid 1.6. Total CPK 117. Troponin is negative. Total cholesterol 141, triglycerides 42, HDL 46, LDL 87. BNP 327. INR 1.0. White blood count 5.5, hemoglobin 13.3, hematocrit 42.5, platelets 204. His TSH in 03/[address] scan with a contrast CT angiogram was done last night and was negative for PE, but noted mid linear left lower atelectasis, moderate coronary artery calcification. ASSESSMENT AND PLAN: 1. Type 2 diabetes mellitus. The patient reports adequate control at baseline as per his reported blood glucose values as well as his last known hemoglobin A1c of 6.2%. I would like to obtain a hemoglobin A1c here to acquire more current understanding of his glycemic control. Under the circumstances of intercurrent illness as well as high dose steroid use, the patient has exhibited hyperglycemia since admission. Based on this outlook and based on his stated insulin requirement, I will place the patient on a combination of Lantus insulin 26 units b.i.d. in addition to Humalog insulin 15 units with meals as well as continue with his linagliptin. Metformin can be resumed a few days out given his contrasted CT scan study last night. The Humalog supplemental scale coverage with moderate intensity will be placed for adequate control as well with blood glucose monitoring a.c. and at bedtime. Further therapeutic changes will be made based on [place] blood [place] [address] CONSULTATION Name: CASSIE MIGUEL Room #: 349-I [facility] IN ..#: [id number] Admission: 09/15/19 Attend Phys: Brett Sosa MD Discharge: Date of : 47 Report #: [id number] 2. Hypertension. The patient's level of blood pressure control has mostly adequate since presentation, he is to continue the current antihypertensive regimen. 3. Hyperlipidemia. The patient has a fairly good level of lipid control on his current rosuvastatin and ezetimibe regimen, he was placed here on atorvastatin and ezetimibe. He is to continue with the same. 4. Chronic obstructive pulmonary disease. The patient presented with chronic obstructive pulmonary disease exacerbation and is being treated with a number of modalities including bronchodilators, steroids, and antibiotics, he is to continue the same. Dr. Murphy is following. 5. Diabetic neuropathy. The patient is maintained on gabapentin therapy for this issue with a fair amount of success. This can be continued when the patient is more clinically stable. I have reviewed the patient's clinical care notes, laboratory results, radiologic reports past and present in addition to other pertinent clinical information for over 35 minutes. I certainly appreciate this consultation by Dr. Rhodes. <ELECTRONICALLY SIGNED> By: Anish Villa MD 09/17/19 [id number] Anish Villa MD /nt
[2019-09-17 11:40] VITALS: BP 123/70
--- NOTE | 2019-09-17 14:08 | NUR ---
RD consult received for obesity. Admitted with copd exacerbation. Has hx diabetes and usually well controlled A1C 6.6. On steroids and BG up to 209-270 range and endocronology following with medication adjustment. BMI 46.4=extreme class III obesity. Wts stable 371 lb for over a year. Has been hospitalized numerous occasions. Motorized scooter for mobility. When asked if attempting to make any dietary/lifestyle adjustments, pt stated no and said "I've been down this road many many times before." Had no questions and did not want to discuss diet further. Keep on carb control diet while hospitalized. Low nutrition risk
--- NOTE | 2019-09-17 14:19 | NUR ---
JULIANA reviewed chart and spoke with nursing and attending physician. Pt is progressing towards goals for discharge. Discharge home with HH is anticipated for tomorrow. Pt is on service with [employer] for private duty care. JULIANA notified liaisonNoni of anticipated discharge. Pt will need ambulance transportation home. JULIANA is following to assist as needed with discharge planning.
[2019-09-17 15:45] VITALS: BP 115/71
--- NOTE | 2019-09-17 18:45 | NUR ---
ASSUMED CARE AT 0700, PT ALERT AND ORIENTED X4. DENIES ANY PAIN, COMPLAINS ABOUT COUGH. COUGH MED GIVEN PER ORDER. ASSESSMENT COMPLETETD. Call light and table within reach. bed alarm on. pt denies any needs. son in room visiting.
[2019-09-17 19:52] VITALS: BP 126/65
--- NOTE | 2019-09-17 22:57 | NUR ---
PT RESTING IN BED WATCHING TV AND VISITING WITH SON AND . NC PER O2 AND CPAP AT HS. PT REPORTS DRY COUGH IS FROM SINUS DRAINAGE AND THAT HE WISHES FOR MUCINEX WITH COUGH MED AT SAME TIME FOR RELIEF. PT IS OBESE WITH GENERALIZED EDEMA. PT REPOSITIONS SELF. PT HAS LONG STRAW FOR THERMOS OF WATER FROM HOME. PT CALLS FOR ASSISTANCE AND NEEDS.
[2019-09-18 03:30] VITALS: BP 123/75
[2019-09-18 07:34] VITALS: BP 127/78
[2019-09-18] MEDS ORDERED: LEVAQUIN 500 M500 M2 PO (08:24)
[2019-09-18] MEDS ORDERED: PREDNISONE 5 MG5 M1 PO (08:26)
[2019-09-18] MEDS ORDERED: LANTUS SUBQ (08:33)
--- NOTE | 2019-09-18 09:27 | NUR ---
ASSUMED CARE OF PT APPROX 0715, A&0X4, BEDBOUND AT THIS TIME, USES URINAL AND BED CACERES SOMEWHAT SUCCESSFULLY, SLIGHTLY SOA, MINIMAL COUGH, PAIN GENERALIZED AND RIGHT SHOULDER AND BACK PAIN, CHRONIC. SEE SEPARATE INTERVENTIONS FOR ASSESSMENTS. CARDIAC MONITORED. PACEMAKER. SON AT BEDSIDE, ENCOURAGED PT TO USE CALL LIGHT FOR ANY NEEDS. D/C NOTED; AWAITING D/C SUMMARY AND WILL HANDLE SOON ABLE.
[2019-09-18 11:53] VITALS: BP 127/78
[2019-09-18 12:16] VITALS: BP 99/51
--- NOTE | 2019-09-18 13:32 | NUR ---
DISCHARGE NOTE: SW reviewed chart and spoke with nursing and attending physician. Pt is medically stable for discharge home today. Discharge orders written for HH services. SW met with pt and son at bedside to discuss discharge plan. Pt declines HH services, as pt has private duty services in place through [employer]. Pt states he would like to resume his prior services. Pt has family support. Ambulance transportation scheduled through [facility]. Pt's nurse aware of discharge plan. No additional SW needs identified at this time, but is available to assist should needs arise.
== END 2019-09-18 13:46 | disposition home health service (06) | DRG 189 ==
LOC: ER 12:23 → 3W 18:07 → EROBS 18:07 → 3W 20:41
PROVIDERS: Nurse Practitioner Family; Physician Assistant; ADMIT Internal Medicine
DX: J96.21 Acute and chronic respiratory failure with hypoxia (principal); J44.1 Chronic obstructive pulmonary disease with (acute) exacerbation; Z68.42 Body mass index [BMI] 45.0-49.9, adult; I27.20 Pulmonary hypertension, unspecified; I10 Essential (primary) hypertension; E78.5 Hyperlipidemia, unspecified; I25.10 Atherosclerotic heart disease of native coronary artery without angina pectoris; M19.90 Unspecified osteoarthritis, unspecified site; G47.33 Obstructive sleep apnea (adult) (pediatric); K21.9 Gastro-esophageal reflux disease without esophagitis; E11.65 Type 2 diabetes mellitus with hyperglycemia; E66.01 Morbid (severe) obesity due to excess calories; E11.42 Type 2 diabetes mellitus with diabetic polyneuropathy; H26.9 Unspecified cataract; N40.0 Benign prostatic hyperplasia without lower urinary tract symptoms; G47.00 Insomnia, unspecified; I45.9 Conduction disorder, unspecified; Z79.899 Other long term (current) drug therapy; Z99.81 Dependence on supplemental oxygen; I25.2 Old myocardial infarction; Z95.5 Presence of coronary angioplasty implant and graft; Z99.3 Dependence on wheelchair; Z82.49 Family history of ischemic heart disease and other diseases of the circulatory system; Z79.84 Long term (current) use of oral hypoglycemic drugs; Z79.891 Long term (current) use of opiate analgesic; Z88.8 Allergy status to other drugs, medicaments and biological substances
CPT/HCPCS: 10879

== ENCOUNTER → 2019-11-13 | Outpatient (CLI) | payer OTHER ==
[~2019-11-13] MED LIST changes: +AMBIEN5 MG PO; +FLONASE 0.05%50 MCG NARES; +LANTUS SUBQ; +LEVAQUIN 500 M500 M2 PO; +MELATONIN10 M3 PO; +POTASSIUM20 PO; +PREDNISONE 5 MG5 M1 PO; +SLOW FE142 MG PO; +XARELTO20 MG PO
== END ==
LOC: HYPER 10:13
DX: E11.621 Type 2 diabetes mellitus with foot ulcer (principal); L97.511 Non-pressure chronic ulcer of other part of right foot limited to breakdown of skin; L97.522 Non-pressure chronic ulcer of other part of left foot with fat layer exposed; S91.102A Unspecified open wound of left great toe without damage to nail, initial encounter; S91.105A Unspecified open wound of left lesser toe(s) without damage to nail, initial encounter; L03.116 Cellulitis of left lower limb; L03.032 Cellulitis of left toe; I89.0 Lymphedema, not elsewhere classified; E11.40 Type 2 diabetes mellitus with diabetic neuropathy, unspecified; K21.9 Gastro-esophageal reflux disease without esophagitis; G47.00 Insomnia, unspecified; G47.33 Obstructive sleep apnea (adult) (pediatric); I27.20 Pulmonary hypertension, unspecified; I25.10 Atherosclerotic heart disease of native coronary artery without angina pectoris; I10 Essential (primary) hypertension; I25.2 Old myocardial infarction; J44.9 Chronic obstructive pulmonary disease, unspecified; M19.90 Unspecified osteoarthritis, unspecified site; R60.0 Localized edema; Z79.4 Long term (current) use of insulin; X58.XXXA Exposure to other specified factors, initial encounter; Y93.89 Activity, other specified; Y92.89 Other specified places as the place of occurrence of the external cause; Y99.8 Other external cause status

== ENCOUNTER → 2019-11-21 | Outpatient (CLI) | payer OTHER | LOC: SJCVCIMAG 10:18 | DX: I73.9 Peripheral vascular disease, unspecified (principal); L97.909 Non-pressure chronic ulcer of unspecified part of unspecified lower leg with unspecified severity ==

== ENCOUNTER → 2019-12-03 | Outpatient (CLI) | payer OTHER | LOC: HYPER 10:51 | DX: E11.621 Type 2 diabetes mellitus with foot ulcer (principal); L97.522 Non-pressure chronic ulcer of other part of left foot with fat layer exposed; E11.40 Type 2 diabetes mellitus with diabetic neuropathy, unspecified; I89.0 Lymphedema, not elsewhere classified; L03.032 Cellulitis of left toe; R60.0 Localized edema; E11.22 Type 2 diabetes mellitus with diabetic chronic kidney disease; I12.9 Hypertensive chronic kidney disease with stage 1 through stage 4 chronic kidney disease, or unspecified chronic kidney disease; N18.1 Chronic kidney disease, stage 1; K21.9 Gastro-esophageal reflux disease without esophagitis; M19.90 Unspecified osteoarthritis, unspecified site; I25.10 Atherosclerotic heart disease of native coronary artery without angina pectoris; J44.9 Chronic obstructive pulmonary disease, unspecified; I25.2 Old myocardial infarction; G47.00 Insomnia, unspecified; G47.33 Obstructive sleep apnea (adult) (pediatric); Z79.4 Long term (current) use of insulin; Z79.01 Long term (current) use of anticoagulants ==

== ENCOUNTER → 2019-12-17 | Outpatient (CLI) | payer OTHER | LOC: HYPER 09:57 | DX: E11.621 Type 2 diabetes mellitus with foot ulcer (principal); L97.522 Non-pressure chronic ulcer of other part of left foot with fat layer exposed; L03.032 Cellulitis of left toe; E11.40 Type 2 diabetes mellitus with diabetic neuropathy, unspecified; E66.9 Obesity, unspecified; G47.00 Insomnia, unspecified; G47.33 Obstructive sleep apnea (adult) (pediatric); R60.0 Localized edema; I89.0 Lymphedema, not elsewhere classified; I27.20 Pulmonary hypertension, unspecified; I25.10 Atherosclerotic heart disease of native coronary artery without angina pectoris; I10 Essential (primary) hypertension; I25.2 Old myocardial infarction; J44.9 Chronic obstructive pulmonary disease, unspecified; M19.90 Unspecified osteoarthritis, unspecified site; K21.9 Gastro-esophageal reflux disease without esophagitis; Z79.4 Long term (current) use of insulin; Z79.84 Long term (current) use of oral hypoglycemic drugs; Z68.42 Body mass index [BMI] 45.0-49.9, adult ==

== ENCOUNTER → 2020-01-15 | Outpatient (CLI) | payer OTHER | LOC: HYPER 10:46 | PROVIDERS: ATTEND Emergency Medicine Emergency Medical Services | DX: E11.621 Type 2 diabetes mellitus with foot ulcer (principal); L97.522 Non-pressure chronic ulcer of other part of left foot with fat layer exposed; E11.40 Type 2 diabetes mellitus with diabetic neuropathy, unspecified; L03.032 Cellulitis of left toe; I89.0 Lymphedema, not elsewhere classified; R60.0 Localized edema; E11.22 Type 2 diabetes mellitus with diabetic chronic kidney disease; I12.9 Hypertensive chronic kidney disease with stage 1 through stage 4 chronic kidney disease, or unspecified chronic kidney disease; N18.1 Chronic kidney disease, stage 1; K21.9 Gastro-esophageal reflux disease without esophagitis; M19.90 Unspecified osteoarthritis, unspecified site; I25.10 Atherosclerotic heart disease of native coronary artery without angina pectoris; J44.9 Chronic obstructive pulmonary disease, unspecified; I25.2 Old myocardial infarction; G47.00 Insomnia, unspecified; G47.33 Obstructive sleep apnea (adult) (pediatric); Z79.4 Long term (current) use of insulin; Z79.01 Long term (current) use of anticoagulants ==

== ENCOUNTER → 2020-01-29 | Outpatient (CLI) | payer OTHER | LOC: HYPER 08:47 | PROVIDERS: ATTEND Emergency Medicine Emergency Medical Services | DX: E11.621 Type 2 diabetes mellitus with foot ulcer (principal); L97.522 Non-pressure chronic ulcer of other part of left foot with fat layer exposed; L03.032 Cellulitis of left toe; L84 Corns and callosities; I89.0 Lymphedema, not elsewhere classified; R60.0 Localized edema; E11.40 Type 2 diabetes mellitus with diabetic neuropathy, unspecified; E66.9 Obesity, unspecified; G47.00 Insomnia, unspecified; G47.33 Obstructive sleep apnea (adult) (pediatric); I27.20 Pulmonary hypertension, unspecified; I25.10 Atherosclerotic heart disease of native coronary artery without angina pectoris; I25.2 Old myocardial infarction; J44.9 Chronic obstructive pulmonary disease, unspecified; K21.9 Gastro-esophageal reflux disease without esophagitis; M19.90 Unspecified osteoarthritis, unspecified site; Z79.4 Long term (current) use of insulin; Z79.84 Long term (current) use of oral hypoglycemic drugs; Z68.42 Body mass index [BMI] 45.0-49.9, adult ==

== ENCOUNTER → 2020-02-12 | Outpatient (CLI) | payer OTHER | LOC: HYPER 10:32 | PROVIDERS: ATTEND Emergency Medicine | DX: E11.621 Type 2 diabetes mellitus with foot ulcer (principal); L97.522 Non-pressure chronic ulcer of other part of left foot with fat layer exposed; L03.032 Cellulitis of left toe; L84 Corns and callosities; I89.0 Lymphedema, not elsewhere classified; R60.0 Localized edema; E11.40 Type 2 diabetes mellitus with diabetic neuropathy, unspecified; E66.9 Obesity, unspecified; G47.00 Insomnia, unspecified; G47.33 Obstructive sleep apnea (adult) (pediatric); I27.20 Pulmonary hypertension, unspecified; I25.2 Old myocardial infarction; I25.10 Atherosclerotic heart disease of native coronary artery without angina pectoris; K21.9 Gastro-esophageal reflux disease without esophagitis; J44.9 Chronic obstructive pulmonary disease, unspecified; M19.90 Unspecified osteoarthritis, unspecified site; Z79.4 Long term (current) use of insulin; Z79.84 Long term (current) use of oral hypoglycemic drugs; Z68.42 Body mass index [BMI] 45.0-49.9, adult ==

== ENCOUNTER → 2021-01-12 | Outpatient (CLI) | payer OTHER | LOC: SJCVCIMAG 07:39 | PROVIDERS: ATTEND Internal Medicine Cardiovascular Disease | DX: I08.1 Rheumatic disorders of both mitral and tricuspid valves (principal); I48.0 Paroxysmal atrial fibrillation; I44.2 Atrioventricular block, complete; I48.3 Typical atrial flutter; I27.20 Pulmonary hypertension, unspecified; G47.33 Obstructive sleep apnea (adult) (pediatric); E11.9 Type 2 diabetes mellitus without complications; J44.9 Chronic obstructive pulmonary disease, unspecified; E66.3 Overweight; Z79.899 Other long term (current) drug therapy; Z79.4 Long term (current) use of insulin; Z95.0 Presence of cardiac pacemaker; Z88.1 Allergy status to other antibiotic agents; Z88.6 Allergy status to analgesic agent ==